=== PATIENT | female | born 1945 | race Hispanic/Latino ===

== ENCOUNTER 2017-07-09 13:03 | Emergency (ER) | payer MEDICARE ==
[~2017-07-09] VITALS: Ht 149.9 cm; Wt 55.8 kg
[2017-07-09] MEDS ORDERED: TRAMADOL HCL 50 MG TAB PO ONE (13:30)
--- NOTE | 2017-07-09 14:32 | Diagnostic Imaging Report ---
FOOT RIGHT COMPLETE - 3 views HISTORY: Pain. Injured the right foot this month. COMPARISON: None available. FINDINGS: Bones: No acute displaced fracture. Osseous alignment is within normal limits. Calcaneal enthesophyte at the plantar fascia and Achilles tendon insertion. Joints: Mild to moderate degenerative changes in the midfoot. Mild degenerative changes of the DIP, PIP. Moderate degenerative changes at the first MTP. Soft tissues: The soft tissues appear unremarkable. IMPRESSION: Degenerative changes as described above. No acute abnormalities. Signed by: Dr. Devendra Meade M.D. on 07/09/2017 2:28 PM
--- NOTE | 2017-07-09 14:36 | Diagnostic Imaging Report ---
ANKLE 3 + VIEWS RIGHT - 3 views HISTORY: Pain. Hurt right foot this month. COMPARISON: None available. FINDINGS: Bones: No acute displaced fracture. Osseous alignment is within normal limits. Calcaneal enthesophytes at the plantar fascia and Achilles tendon insertion. Joints: The joint spaces are well-maintained. Soft tissues: The soft tissues appear unremarkable. IMPRESSION: No acute radiographic abnormality. Signed by: Dr. Devendra Meade M.D. on 07/09/2017 2:32 PM
--- NOTE | 2017-07-09 15:50 | Diagnostic Imaging Report ---
Right TOES RIGHT MIN 2 VIEWS - 4 views HISTORY: Pain. Hurt right toe. COMPARISON: None available. FINDINGS: Bones: No acute displaced fracture. Osseous alignment is within normal limits. Joints: Dorsally dislocated second digit at the MTP. No fracture fragments. Soft tissues: The soft tissues appear unremarkable. IMPRESSION: Dorsally dislocated second digit at the MTP. No fracture fragments. Signed by: Dr. Devendra Meade M.D. on 07/09/2017 3:47 PM
[2017-07-09] MEDS ORDERED: LIDOCAINE HCL 1% LOCAL INJ 20 ML VIAL INJ ONE (17:00)
--- NOTE | 2017-07-09 17:58 | Diagnostic Imaging Report ---
TOES RIGHT MIN 2 VIEWS - 2 views HISTORY: Pain. Right foot injury COMPARISON: None available. FINDINGS: Bones: No acute displaced fracture. Osseous alignment is within normal limits. Joints: The joint spaces are well-maintained. Soft tissues: The soft tissues appear unremarkable. IMPRESSION: Interval relocation of the second MTP joint. No fracture fragments. Signed by: Dr. Devendra Meade M.D. on 07/09/2017 5:54 PM
== END 2017-07-09 18:51 | disposition home or self-care (01) ==
LOC: ER 13:03
DX: S93.124A Dislocation of metatarsophalangeal joint of right lesser toe(s), initial encounter (principal); W01.0XXA Fall on same level from slipping, tripping and stumbling without subsequent striking against object, initial encounter; Y93.01 Activity, walking, marching and hiking; Y92.008 Other place in unspecified non-institutional (private) residence as the place of occurrence of the external cause
CPT/HCPCS: 99283

== ENCOUNTER 2022-06-13 13:10 | Observation (INO) | payer MEDICARE, OTHER ==
[~2022-06-13] VITALS: Ht 149.9 cm; Wt 55.8 kg
[2022-06-13] MEDS ORDERED: Morphine 2mg Syringe 2 MG/ML SYR IV ONE (15:00)
[2022-06-13] MEDS ORDERED: ONDANSETRON HCL INJ 2MG/ML 2ML 2 MG/ML VIAL IV ONE (15:00)
[2022-06-13 15:02] LABS: BASOPHILS % 0.3 % (0.0-1.0); EOSINOPHILS # (AUTO) 0.1 (0.0-0.4); EOSINOPHILS % 0.7 % (0.0-6.0); HEMATOCRIT 39.7 % (34.2-44.1); LYMPHOCYTES # (AUTO) 2.4 (1.0-3.2); LYMPHOCYTES % 20.5 % (18.0-39.1); MEAN CORPUSCULAR HEMOGLOBIN 27.3 pg (28-32); MEAN CORPUSCULAR HGB CONC 32.7 g/dL (31-35); MEAN CORPUSCULAR VOLUME 83.4 fL (81-99); MONOCYTES # (AUTO) 0.7 (0.2-0.8); NEUTROPHILS # (AUTO) 8.4 (2.1-6.9); NEUTROPHILS % 72.1 % (38.7-80.0); PLATELET COUNT 239 x10e3/uL (140-360); RED BLOOD COUNT 4.76 x10e6/uL (3.6-5.1); RED CELL DISTRIBUTION WIDTH 15.1 % (11.7-14.4)
[2022-06-13 15:14] LABS: INR 0.96; PARTIAL THROMBOPLASTIN TIME 30.2 seconds (23.8-35.5)
[2022-06-13 15:21] LABS: ALANINE AMINOTRANSFERASE 11 IU/L (0-55); ALBUMIN/GLOBULIN RATIO 1.2 (0.8-2.0); ALKALINE PHOSPHATASE 77 IU/L (40-150); ANION GAP 13.1 mmol/L (8-16); BLOOD UREA NITROGEN 34 mg/dL (7-26); BUN/CREATININE RATIO 45 (6-25); CALCIUM 8.7 mg/dL (8.4-10.2); CARBON DIOXIDE 25 mmol/L (22-29); CHLORIDE 108 mmol/L (98-107); CREATININE, SERUM 0.75 mg/dL (0.57-1.11); GLUCOSE 106 mg/dL (74-118); POTASSIUM 4.1 mmol/L (3.5-5.1); SODIUM 142 mmol/L (136-145)
[2022-06-13] MEDS ORDERED: ONDANSETRON HCL INJ 2MG/ML 2ML 2 MG/ML VIAL IV PRN (17:00)
[2022-06-13] MEDS ORDERED: Morphine 2mg Syringe 2 MG/ML SYR IV PRN (17:00)
[2022-06-13] MEDS: SODIUM CHLORIDE 0.9% 1000ML 1,000 ML IV SCH (17:59)
[2022-06-14] MEDS: SODIUM CHLORIDE 0.9% 1000ML 1,000 ML IV SCH (05:05)
[2022-06-14] MEDS ORDERED: HYDRALAZINE HCL 25 MG TAB PO PRN (08:30)
[2022-06-14] MEDS ORDERED: BUPIVACAINE 0.25% 30ML SDV ONE (10:31)
[2022-06-14] MEDS ORDERED: MUPIROCIN 2% OINT 22 GM TUBE ONE (10:31)
[2022-06-14] MEDS ORDERED: BUPIVACAINE HCL 0.5% INJ 30 ML VIAL INJ ONE (10:35)
[2022-06-14] MEDS ORDERED: ALBUTEROL/IPRATROPIUM 3 ML NEB ONE (11:33)
[2022-06-14] MEDS ORDERED: FENTANYL CITRATE/PF 100MCG/2 ML INJ ONE ×2 (11:51→12:12)
[2022-06-14 12:23] VITALS: BP 136/61
[2022-06-14] MEDS ORDERED: DEXAMETHASONE SOD PHOS INJ 4 MG/ML SDV ONE (13:00)
[2022-06-14] MEDS ORDERED: PROPOFOL IV EMULSION 10 MG/ML 20 ML VIAL ONE (13:00)
[2022-06-14] MEDS ORDERED: ONDANSETRON HCL INJ 2MG/ML 2ML 2 MG/ML VIAL ONE (13:00)
[2022-06-14] MEDS ORDERED: LIDOCAINE HCL 2% LOCAL INJ 5 ML SDV VIAL INJ ONE (13:00)
[2022-06-14] MEDS ORDERED: POVIDONE IODINE 0.05% 0.05 % ML PO ONE (13:00)
[2022-06-14] MEDS ORDERED: SEVOFLURANE INHAL SOLN 250 ML PEN BTL ONE (13:00)
== END 2022-06-14 12:35 | disposition home or self-care (01) ==
LOC: ER 13:40 → ERHOLD 17:02 → PACU V 06-14 11:34
PROVIDERS: ADMIT Internal Medicine; ATTEND Internal Medicine
DX: S63.286A Dislocation of proximal interphalangeal joint of right little finger, initial encounter (principal); W18.09XA Striking against other object with subsequent fall, initial encounter; Y93.89 Activity, other specified; Y92.481 Parking lot as the place of occurrence of the external cause; Z20.822 Contact with and (suspected) exposure to COVID-19; I10 Essential (primary) hypertension; E78.5 Hyperlipidemia, unspecified
CPT/HCPCS: 0223U; 26746; 36415; 73030; 73130; 80053; 85025; 85610; 85730; 99284; G0378 ×2; J0690 ×2; J1100; J2001; J2270; J2405 ×2; J2704; J3010; J7030 ×2

== ENCOUNTER 2023-11-15 13:14 | Emergency (ER) | payer MEDICARE ==
[~2023-11-15] VITALS: Ht 149.9 cm; Wt 55.8 kg
[2023-11-15] MEDS ORDERED: SODIUM CHLORIDE 0.9% 1000ML 1,000 ML IV STA (14:02)
[2023-11-15 14:12] LABS: BASOPHILS % 0.2 % (0.0-1.0); EOSINOPHILS % 0.5 % (0.0-6.0); HEMATOCRIT 41.8 % (34.2-44.1); HEMOGLOBIN 13.6 g/dL (12.0-16.0); LYMPHOCYTES # (AUTO) 1.9 (1.0-3.2); LYMPHOCYTES % 32.9 % (18.0-39.1); MEAN CORPUSCULAR HEMOGLOBIN 27.5 pg (28-32); MEAN CORPUSCULAR HGB CONC 32.5 g/dL (31-35); MEAN CORPUSCULAR VOLUME 84.4 fL (81-99); MONOCYTES # (AUTO) 0.3 (0.2-0.8); MONOCYTES % 5.8 % (4.4-11.3); NEUTROPHILS # (AUTO) 3.5 (2.1-6.9); NEUTROPHILS % 60.1 % (38.7-80.0); PLATELET COUNT 183 x10e3/uL (140-360); RED BLOOD COUNT 4.95 x10e6/uL (3.6-5.1); RED CELL DISTRIBUTION WIDTH 15.2 % (11.7-14.4); WHITE BLOOD COUNT 5.84 x10e3/uL (4.8-10.8)
[2023-11-15 14:27] LABS: ALANINE AMINOTRANSFERASE 18 IU/L (0-55); ALBUMIN 3.9 g/dL (3.5-5.0); ALBUMIN/GLOBULIN RATIO 1.1 (0.8-2.0); ALKALINE PHOSPHATASE 88 IU/L (40-150); ANION GAP 14.5 mmol/L (8-16); BILIRUBIN,TOTAL 0.5 mg/dL (0.2-1.2); BLOOD UREA NITROGEN 16 mg/dL (7-26); BUN/CREATININE RATIO 18 (6-25); CALCIUM 8.2 mg/dL (8.4-10.2); CARBON DIOXIDE 22 mmol/L (22-29); CHLORIDE 108 mmol/L (98-107); CREATINE KINASE 58 IU/L (29-168); CREATININE, SERUM 0.88 mg/dL (0.57-1.11); EST GLOMERULAR FILTRATION RATE 67 ML/MIN (>=60); GLUCOSE 150 mg/dL (74-118); LIPASE 55 U/L (8-78); MAGNESIUM 1.8 MG/DL (1.3-2.1); POTASSIUM 3.5 mmol/L (3.5-5.1); SODIUM 141 mmol/L (136-145); TOTAL PROTEIN 7.6 g/dL (6.5-8.1)
[2023-11-15 14:35] LABS: TROPONIN I < 0.001 ng/mL (0-0.300)
[2023-11-15 14:59] LABS: BILIRUBIN,URINE SMALL (NEGATIVE); CLARITY,URINE SL CLOUDY (CLEAR); COLOR,URINE YELLOW (YELLOW); GLUCOSE, URINE NEGATIVE (NEGATIVE); KETONES,URINE NEGATIVE (NEGATIVE); LEUKOCYTE ESTERASE ,URINE NEGATIVE (NEGATIVE); NITRITE,URINE NEGATIVE (NEGATIVE); PH,URINE 5.5 (5 - 7); PROTEIN,URINE DIPSTICK 1+ (NEGATIVE); URINE UROBILINOGEN 0.2 mg/dL (0.2 - 1)
[2023-11-15 15:11] LABS: AMORPHOUS SEDIMENT,URINE MODERATE (FEW); BACTERIA,URINE FEW /HPF; MUCUS,URINE MODERATE (RARE); RENAL EPITHELIAL CELLS,URINE RARE; WBC,URINE (MAN) 0-5 /HPF (0-5)
[2023-11-15 17:10] VITALS: PULSE 73; RESP 15; TEMP 98.2; O2SAT 97
[2023-11-15 18:08] LABS: HYPOCHROMASIA SLIGHT; LYMPHOCYTES % (MANUAL) 28 % (19-48); MONOCYTES % (MANUAL) 3 % (3.4-9.0); NEUTROPHILS % (MANUAL) 69 % (40-74); PLATELET ESTIMATE ADEQUATE; PLATELET MORPHOLOGY COMMENT NORMAL; RBC MORPHOLOGY COMMENT NORMAL
== END 2023-11-15 17:10 | disposition home or self-care (01) ==
LOC: ER 13:27
DX: R53.1 Weakness (principal); I10 Essential (primary) hypertension; E11.65 Type 2 diabetes mellitus with hyperglycemia; E78.5 Hyperlipidemia, unspecified; E03.9 Hypothyroidism, unspecified
CPT/HCPCS: 36415; 71045; 80053; 81001; 82550; 83690; 83735; 84484; 85025; 93005; 99283